=== PATIENT | female | born 2000 | race Caucasian/White ===

== ENCOUNTER 2021-07-05 14:08 | Emergency (ER) | payer MEDICAID ==
[~2021-07-05] VITALS: Ht 165.1 cm; Wt 63.0 kg
[2021-07-05] MEDS ORDERED: LORazepam 1 MG TABLET PO ONE (15:15)
[2021-07-05] MEDS ORDERED: IBUPROFEN 600 MG TABLET PO ONE (15:15)
[2021-07-05 16:51] VITALS: BP 120/74
== END 2021-07-05 16:53 | disposition home or self-care (01) ==
LOC: EMS 14:08
DX: T74.21XA Adult sexual abuse, confirmed, initial encounter (principal); S00.511A Abrasion of lip, initial encounter; F41.9 Anxiety disorder, unspecified; Y04.2XXA Assault by strike against or bumped into by another person, initial encounter; Y93.89 Activity, other specified; Y92.89 Other specified places as the place of occurrence of the external cause; Y99.8 Other external cause status
CPT/HCPCS: 99283